=== PATIENT | female | born 1995 | race African-American/Black ===

== ENCOUNTER 2025-04-29 06:50 | Inpatient (IN) | payer OTHER ==
[2025-04-29 08:12] VITALS: BMI 40.1
[2025-04-29 10:05] LABS: ABSOLUTE IMMATURE GRANULOCYTES 0.02 x10^3/uL (0.0-0.031); BASOPHILS # 0.01 x10^3/uL (0.01-0.08); EOSINOPHIL % 1.1 % (0.7-5.8); EOSINOPHILS # 0.07 x10^3/uL (0.04-0.36); MCHC 31.5 g/dl (32.2-35.5); MEAN CELL VOLUME 85.8 fl (79.4-94.8); MEAN PLT VOLUME 11.4 fl (9.4-12.3); MONOCYTE # 0.49 x10^3/uL (0.24-0.86); MONOCYTE % 7.7 % (4.7-12.5); RDW 14.8 % (12.1-16.5)
[2025-04-29 10:14] LABS: INR 1.03 (0.83-1.09); PROTHROMBIN TIME (PATIENT) 11.2 SEC (9.7-13.0)
[2025-04-29 10:17] LABS: ACTIVATED PTT 28.3 SECONDS (25.2-36.5)
[2025-04-29] MEDS ORDERED: OXYTOCIN 30 UNITS in 0.9% NS 30 UNIT/500 ML INFUS.BAG IVPB ONE (10:41)
[2025-04-29] MEDS: ELECTROLYTE-148 SOLN 1,000 ML IV SCH ×2 (10:51→12:15)
[2025-04-29 10:53] LABS: GLUCOSE,RANDOM 70.0 mg/dL (74-106)
[2025-04-29 10:54] LABS: CO2 21.0 mmol/L (21-32)
[2025-04-29 10:59] LABS: CREATININE 0.67 mg/dL (0.55-1.3)
[2025-04-29] MEDS: OXYTOCIN 30 UNITS in 0.9% NS 30 UNIT/500 ML INFUS.BAG IVPB SCH (11:30)
[2025-04-29] MEDS ORDERED: FENTANYL/BUPIVACAINE/NS/PF - PCEA - 50 ML DISP.SYRIN EP ONE (12:10)
[2025-04-29] MEDS ORDERED: FENTANYL CITRATE/PF 50 MCG/ML VIAL ONE (12:19)
[2025-04-29] MEDS ORDERED: BUPIVACAINE HCL/PF 0.25% (2.5MG/ML) 10 ML VIAL ONE (12:19)
[2025-04-29] MEDS ORDERED: NALOXONE HCL 0.4 MG/ML VIAL IVPUSH PRN (12:45)
[2025-04-29] MEDS: FENTANYL/BUPIVACAINE/NS/PF - PCEA - 50 ML DISP.SYRIN EP SCH (12:50)
[2025-04-29] MEDS ORDERED: morphine SULFATE/PF 1 MG/2 ML (2cc Syringe - QUVA) ONE (14:41)
[2025-04-29] MEDS ORDERED: LIDO 2%/EPI 1:200000 PRESRVFRE (20 ML SDVIAL) ONE (14:42)
[2025-04-29] MEDS ORDERED: ACETAMINOPHEN INJECTION 100 ML ONE (15:34)
[2025-04-29] MEDS ORDERED: IBUPROFEN (CALDOLOR) 800 MG/200 ML PREMIX BAGS IVPB ONE ×2 (15:49→18:19)
[2025-04-29] MEDS ORDERED: ONDANSETRON 4 MG/2 ML VIAL IVPUSH PRN ×2 (16:44→22:14)
[2025-04-29] MEDS ORDERED: ACETAMINOPHEN 325 MG TABLET (FP) PO PRN (16:44)
[2025-04-29] MEDS ORDERED: OXYTOCIN 20 UNITS in 0.9% NS 20 UNIT/1,000 ML INFUS.BAG IV ONE (16:50)
[2025-04-29 17:12] LABS: CORD BASE EXCESS -7.5 mmol/L (0-2); CORD HCO3 20.4 mmHg (20-29); CORD PCO2 49.9 mmHg (30-78); CORD pH 7.23 (7.14-7.44)
[2025-04-29 17:13] LABS: CORD BASE EXCESS -3.800 mmol/L (0-2); CORD HCO3 24.8 mmHg (20-29); CORD PCO2 60.6 mmHg (30-78); CORD pH 7.229 (7.14-7.44)
[2025-04-29] MEDS ORDERED: BENZOCAINE 20% 57 GM BOTTLE TP PRN (17:13)
[2025-04-29] MEDS ORDERED: METHYLERGONOVINE MALEATE 0.2 MG/1 ML AMP IM PRN (17:13)
[2025-04-29] MEDS ORDERED: WITCH HAZEL 50% (TUCKS) 40 PAD/JAR PAD TP PRN (17:13)
[2025-04-29] MEDS: OXYTOCIN 20 UNITS in 0.9% NS 20 UNIT/1,000 ML INFUS.BAG IV SCH (18:00)
[2025-04-29] MEDS: IBUPROFEN 800 MG/8 ML IJ IVPB PRN (18:31)
[2025-04-29] MEDS: CEFAZOLIN 1 GM in DEXTROSE 5%-WATER - 50 ML IVPB SCH (22:24)
[2025-04-30 07:35] LABS: ABSOLUTE IMMATURE GRANULOCYTES 0.04 x10^3/uL (0.0-0.031); BASOPHILS # 0.03 x10^3/uL (0.01-0.08); EOSINOPHIL % 0.9 % (0.7-5.8); EOSINOPHILS # 0.09 x10^3/uL (0.04-0.36); MCHC 31.8 g/dl (32.2-35.5); MEAN CELL VOLUME 85.0 fl (79.4-94.8); MEAN PLT VOLUME 11.1 fl (9.4-12.3); MONOCYTE # 0.98 x10^3/uL (0.24-0.86); MONOCYTE % 10.3 % (4.7-12.5); RDW 14.8 % (12.1-16.5)
[2025-04-30] MEDS: ENOXAPARIN NA (PORCINE) 40 MG/0.4 ML DISP.SYRIN SQ SCH (11:04)
[2025-04-30] MEDS: PRENATAL VITAMINS W/ FOLIC ACID TABLET (FP) PO SCH (11:05)
[2025-04-30] MEDS: CEFAZOLIN 1 GM in DEXTROSE 5%-WATER - 50 ML IVPB SCH (11:11)
[2025-04-30] MEDS: SIMETHICONE 80 MG TAB.CHEW (FP) PO PRN (14:32)
[2025-04-30] MEDS: IBUPROFEN 600 MG TABLET (FP) PO PRN (14:32)
[2025-04-30] MEDS ORDERED: BISACODYL 10 MG SUPP.RECT RC PRN (17:13)
[2025-05-01] MEDS: ACETAMINOPHEN 325 MG TABLET (FP) PO PRN (10:49)
[2025-05-01] MEDS: FERROUS SO4 325 MG TABLET (FP) PO SCH (10:49)
[2025-05-01] MEDS: SENNOSIDES/DOCUSATE COMBO (SENNA PLUS) TABLET (UD) PO PRN (22:53)
[2025-05-02 08:47] LABS: ABSOLUTE IMMATURE GRANULOCYTES 0.03 x10^3/uL (0.0-0.031); BASOPHILS # 0.03 x10^3/uL (0.01-0.08); EOSINOPHIL % 4.1 % (0.7-5.8); EOSINOPHILS # 0.30 x10^3/uL (0.04-0.36); MCHC 31.9 g/dl (32.2-35.5); MEAN CELL VOLUME 85.9 fl (79.4-94.8); MEAN PLT VOLUME 11.0 fl (9.4-12.3); MONOCYTE # 0.75 x10^3/uL (0.24-0.86); MONOCYTE % 10.2 % (4.7-12.5); RDW 15.0 % (12.1-16.5)
[2025-05-02 08:48] VITALS: BP 112/72; PULSE 93; RESP 17; TEMP 97.9
== END 2025-05-02 13:45 | disposition home or self-care (01) | DRG 540 ==
LOC: JLDR 06:50 → J3W 19:51
PROVIDERS: ADMIT Obstetrics & Gynecology; ATTEND Obstetrics & Gynecology
PROC: 10D00Z1 Extraction of Products of Conception, Low, Open Approach (ICD-10-PCS; principal; 2025-04-29)
DX: O36.5930 Maternal care for other known or suspected poor fetal growth, third trimester, not applicable or unspecified (principal); O99.214 Obesity complicating childbirth; E66.01 Morbid (severe) obesity due to excess calories; Z3A.38 38 weeks gestation of pregnancy; Z37.0 Single live birth
CPT/HCPCS: 36415; 36600; 80048; 82803; 85025; 85610; 85730; 86780; 86850; 86900; 86901; 88307-TC